=== PATIENT | male | born 1950 | race Caucasian/White ===

== ENCOUNTER 2021-01-13 01:26 | Inpatient (IN) | payer MEDICARE ==
[~2021-01-13] VITALS: Ht 177.8 cm; Wt 93.3 kg
[2021-01-13] MEDS ORDERED: ALBUTEROL/IPRATROPIUM 2.5MG/0.5MG, 3 ML NPPB ONE (01:30)
[2021-01-13] MEDS ORDERED: SODIUM CHLORIDE FLUSH 10ML SYR IVF ONE (01:30)
[2021-01-13] MEDS ORDERED: AZITHROMYCIN 500 MG in SODIUM CHLORIDE 0.9% 250 ML IVPB ONE (01:30)
[2021-01-13] MEDS ORDERED: DEXAMETHASONE 4 MG/ML, 1ML IVPush ONE (01:30)
[2021-01-13] MEDS ORDERED: SODIUM CHLORIDE 0.9% 1,000 ML IV ONE (01:30)
[2021-01-13] MEDS ORDERED: CEFTRIAXONE 1,000 MG in DEXTROSE 5% 50 ML IVPB ONE (01:30)
--- NOTE | 2021-01-13 01:53 | NUR ---
bibab from home. pt covid + last . pt [place] [facility] two [facility] ago pt began to get increased SOB and sore throat. attached to card/sp02/bp monitors. vss on 6L nc. bed in low, rails engaged. call light on lap. ekg and ermd eval done
[2021-01-13] MEDS ORDERED: DEXAMETHASONE 4 MG/ML, 1ML ONE (01:55)
[2021-01-13] MEDS ORDERED: ALBUTEROL/IPRATROPIUM 2.5MG/0.5MG, 3 ML ONE (01:56)
[2021-01-13 02:00] LABS: BASOPHILS % (AUTO) 0 % (0-1); EOSINOPHILS % (AUTO) 1 % (1-7); LYMPHOCYTES % (AUTO) 15 % (22-44); MEAN CORPUSCULAR HEMOGLOBIN 31.2 pg (27.5-34.5); MEAN CORPUSCULAR HGB CONC 34.8 g/dL (33.2-36.2); MEAN PLATELET VOLUME 6.8 fL (7.4-10.4); MONOCYTES % (AUTO) 7 % (2-9); NEUTROPHILS % (AUTO) 78 % (42-75); PLATELET COUNT 389 x10^3/uL (130-400); RED CELL DISTRIBUTION WIDTH 13.6 % (9.4-14.8)
[2021-01-13 02:10] LABS: ALANINE AMINOTRANSFERASE 32 U/L (12-78); ALBUMIN 2.8 g/dL (3.4-5.0); ANION GAP 9 mmol/L (5-15); CALCIUM 8.5 mg/dL (8.5-10.1); CHLORIDE 103 mmol/L (98-107); CREATININE 0.94 mg/dL (0.7-1.3)
[2021-01-13 02:12] LABS: ALKALINE PHOSPHATASE 68 U/L (45-117); BILIRUBIN,TOTAL 1.1 mg/dL (0.2-1.0); TOTAL PROTEIN 7.3 g/dL (6.4-8.2)
--- NOTE | 2021-01-13 02:40 | NUR ---
PT STATES HE DOES NOT TAKE ANY MEDICATIONS FOR MED REC
[2021-01-13] MEDS ORDERED: LABETALOL 5MG/ML, 20ML IVPush PRN (03:00)
[2021-01-13] MEDS ORDERED: ONDANSETRON 2MG/ML, 2ML IVPush PRN (03:00)
[2021-01-13] MEDS ORDERED: POLYETHYLENE GLYCOL 17 GM PACKET PO PRN (03:00)
[2021-01-13] MEDS ORDERED: PHARMACY MAY ADJ FOR RENAL FX MC PRN (03:00)
--- NOTE | 2021-01-13 03:02 | NUR ---
GAVE REPORT TO ROSE ADAMS
[2021-01-13 03:30] VITALS: BP 133/84
[2021-01-13] MEDS ORDERED: ENOXAPARIN 30 MG/0.3 ML SQ SCH (03:30)
[2021-01-13 06:57] VITALS: BP 123/79
[2021-01-13] MEDS ORDERED: ZINC SULFATE 220 MG CAPSULE PO SCH (09:00)
[2021-01-13] MEDS ORDERED: DEXAMETHASONE 4 MG/ML, 1ML IVPush SCH (09:00)
[2021-01-13] MEDS ORDERED: ASCORBIC ACID 500 MG TABLET PO SCH (09:00)
[2021-01-13] MEDS ORDERED: FAMOTIDINE 20 MG TABLET PO SCH (09:00)
[2021-01-13 09:51] LABS: BASOPHILS % (AUTO) 1 % (0-1); EOSINOPHILS % (AUTO) 1 % (1-7); LYMPHOCYTES % (AUTO) 11 % (22-44); MEAN CORPUSCULAR HEMOGLOBIN 30.8 pg (27.5-34.5); MEAN CORPUSCULAR HGB CONC 34.2 g/dL (33.2-36.2); MEAN PLATELET VOLUME 7.2 fL (7.4-10.4); MONOCYTES % (AUTO) 3 % (2-9); NEUTROPHILS % (AUTO) 85 % (42-75); PLATELET COUNT 359 x10^3/uL (130-400); RED BLOOD COUNT 4.71 x10^6/uL (4.38-5.82); RED CELL DISTRIBUTION WIDTH 13.4 % (9.4-14.8)
[2021-01-13 09:55] LABS: ANION GAP 7 mmol/L (5-15); CALCIUM 8.3 mg/dL (8.5-10.1); CHLORIDE 107 mmol/L (98-107); CREATININE 0.84 mg/dL (0.7-1.3)
[2021-01-13] MEDS ORDERED: ASCO500T9 PO (11:13)
[2021-01-13] MEDS ORDERED: ZINC220C8 PO (11:13)
[2021-01-13] MEDS ORDERED: DEXA6TAB6 PO (11:13)
[2021-01-13 12:00] VITALS: BP 126/91
[2021-01-13 19:30] VITALS: BP 129/84
[2021-01-13] MEDS ORDERED: MELATONIN 5 MG TABLET PO SCH (21:00)
== END 2021-01-13 20:54 | disposition home or self-care (01) | DRG 177 ==
LOC: ED 01:58 → EDIP 02:50 → 3N 03:15
PROVIDERS: ADMIT Internal Medicine; ATTEND Family Medicine
DX: U07.1 COVID-19 (principal); J96.01 Acute respiratory failure with hypoxia; J15.9 Unspecified bacterial pneumonia; J12.82 Pneumonia due to coronavirus disease 2019; F41.9 Anxiety disorder, unspecified; E66.9 Obesity, unspecified; Z66 Do not resuscitate; Z68.29 Body mass index [BMI] 29.0-29.9, adult
CPT/HCPCS: 36415; 71045; 80048; 80053; 83735; 84145; 85025; 87040; 93005; 96365; 96368; 99291; G0378; J0456; J0696; J1100; J1650; J7030; J7050